=== PATIENT | female | born 1990 ===

== ENCOUNTER 2020-08-14 09:09 | Inpatient (IN) | payer BC, OTHER ==
[2020-08-14 09:42] VITALS: BMI 36.8
[2020-08-14] MEDS ORDERED: Ondansetron PF 4 MG/2 ML Vial IVP PRN (10:07)
[2020-08-14] MEDS ORDERED: Promethazine HCl 25 MG/ML VIAL IM PRN (10:07)
[2020-08-14] MEDS ORDERED: Lidocaine 1% (PF) 30 ML VIAL SC PRN (10:07)
[2020-08-14] MEDS ORDERED: hydrALAZINE 20 MG/ML VIAL SLOW IVP PRN (10:07)
--- NOTE | 2020-08-14 10:10 | PDOC.BPN ---
- Brief Progress Note Encounter Date: 08/14/20 Encounter Time: 10:05 Patient sent from the office by Dr Matson for BP check. Was 140/90s there/ here 150/80-90s. Dr Matson aware and doing direct admit for PIH IOL. Patient not seen by me as directly admitted to [facility] and she has seen her in office 9VX closed). Orders in per [facility]
[2020-08-14] MEDS ORDERED: Butorphanol Tartrate 1 MG/ML VIAL SLOW IVP PRN (10:12)
[2020-08-14] MEDS ORDERED: HYDROcodone/Acetaminophen 5/325 mg Tablet PO PRN ×2 (10:12)
[2020-08-14] MEDS ORDERED: Ibuprofen 800 MG TAB PO PRN (10:12)
[2020-08-14] MEDS ORDERED: Misoprostol 100 MCG TAB VAG SCH ×2 (10:15)
--- NOTE | 2020-08-14 10:18 | PDOC.LDHP ---
Labor and Delivery H&P Chief complaint: other (elevated BP In office) HPI: Pt is a 29yo G1 @ 38.5 weeks w GHTN. Current gestational age (weeks): 38 Due date: 08/23/20 Dating criteria: last menstrual period, first trimester ultrasound Grav: 1 Para: 0 Current complications: gestational hypertension Abnormal US findings: No Current medications: none Previous surgical history: none Allergies/Adverse Reactions: Allergies Allergy/AdvReac Type Severity Reaction Status Date / Time No Known Allergies Allergy Verified 08/14/20 09:43 Social history: none - Physical Exam Abnormal vital signs: MILD range BP General: NAD Heart: RRR Lungs: CTAB Abdomen: gravid Extremeties: no edema FHT: category 1 - Vaginal Exam cm dilated: 0 Effacement: 0% Station: -3 - OB Labs Blood type: O RH: positive Antibody Screen: positive (warm antibodies) HIV: negative RPR: negative HEPSAg: negative 1 hour GCT: negative GBS: negative Urine drug screen: negative Rubella: immune - Assessment L&D Assessment: medically indicated induction (GHTN at term) - Plan Plan: admit to L&D, cervical ripening, labor augmentation if indicated, informed consent obtained, anesthesia consult for pain management -: A/P: GHTN admit @ 38.5 weeks, cervical ripening w cytotec explained and pt agrees to plan of care. Magnesium for seizure prophylaxis if severe features noted.
[2020-08-14] MEDS: Lactated Ringer's 1,000 ML IV SCH (11:08)
[2020-08-14 11:09] LABS: Hemoglobin 13.3 g/dL (12.0-16.0); Mean Corpuscular HGB CONC 34.6 g/dL (32.0-36.0); Mean Corpuscular Hemoglobin 31.6 pg (27.0-31.0); Mean Corpuscular Volume 91.3 fL (78.0-98.0); Mean Platelet Volume 8.7 fL (7.4-10.4); Platelet Count 226 thou/uL (130-400); RBC Distribution Width 13.2 % (11.5-14.5); White Blood Cell (WBC) Count 10.8 thou/uL (4.8-10.8)
[2020-08-14 11:30] LABS: ALT (SGPT) 12 U/L (8-55); AST (SGOT) 16 U/L (5-34); Albumin 3.2 g/dL (3.5-5.0); Alkaline Phosphatase 155 U/L (40-110); Anion Gap 16 mmol/L (10-20); BUN (Urea Nitrogen) 5 mg/dL (7.0-18.7); Bilirubin, Total 0.3 mg/dL (0.2-1.2); Calc. Creatinine Clearance 239 mL/min (70-130); Calcium 8.8 mg/dL (7.8-10.44); Carbon Dioxide 18 mmol/L (22-29); Chloride 107 mmol/L (98-107); Estimated GFR-MDRD Greater than 90; Globulin 2.9 g/dL (2.4-3.5); Glucose 88 mg/dL (70-105); Potassium 3.9 mmol/L (3.5-5.1); Protein, Total 6.1 g/dL (6.0-8.3); Sodium 137 mmol/L (136-145)
[2020-08-14 11:48] LABS: HBSAg Index 0.23 S/CO (0-0.99); Hep B Surf Ag Non-Reactive S/CO (NonReactive); Syphilis Antibody Nonreactive (Nonreactive); Syphilis Antibody Index 0.01 S/CO (<1.00 Non-Reactive)
[2020-08-14] MEDS ORDERED: Bupivacaine/Epinephrine 0.25% 30 ML VIAL ONE (12:07)
--- NOTE | 2020-08-14 12:47 | PDOC.LDPN ---
Labor & Delivery Progress Note - Subjective Subjective: comfortable - Objective Vital signs reviewed and normal: yes (mild rang) FHT: category 1 - Assessment (1) Gestational hypertension Code(s): O13.9 - GESTATIONAL HTN W/O SIGNIFICANT PROTEINURIA, UNSP TRIMESTER Current Visit: Yes Status: Acute (2) 38 weeks gestation of Code(s): Z3A.38 - 38 WEEKS GESTATION OF Current Visit: Yes Status: Acute Plan: continue plan of care -: Doing well, BP mild range. Discussed antihypertensive if BP severe range, as well as magnesium. Cyotec 50mcg x [address]
--- NOTE | 2020-08-14 16:37 | PDOC.LDPN ---
Labor & Delivery Progress Note - Subjective Subjective: comfortable - Objective Vital signs reviewed and normal: yes General: resting Dilation: 1 FHT: category 1 - Assessment (1) Gestational hypertension Code(s): O13.9 - GESTATIONAL HTN W/O SIGNIFICANT PROTEINURIA, UNSP TRIMESTER Current Visit: Yes Status: Acute (2) 38 weeks gestation of Code(s): Z3A.38 - 38 WEEKS GESTATION OF Current Visit: Yes Status: Acute Plan: continue plan of care -: 2nd cytotec in, 3rd cytotec vs Cook Balloon reviewed if needed.
[2020-08-14] MEDS ORDERED: Terbutaline Sulfate 1 MG/ML VIAL ONE (22:04)
--- NOTE | 2020-08-14 22:44 | PDOC.BPN ---
- Brief Progress Note Encounter Date: 08/14/20 Encounter Time: 22:45 Asked by Anand, the patient's RN, to review strip. I see more than 5 CTX in 10 minutes with occ lates but good variability. OK for terb SQ x 1 now to intrauterine resus the child. IVF bolus has been given. Cannot place CX balloon due to current tachysystole.
[2020-08-14] MEDS ORDERED: Terbutaline Sulfate 1 MG/ML VIAL SC SCH (22:45)
--- NOTE | 2020-08-15 00:38 | PDOC.BPN ---
- Brief Progress Note Encounter Date: 08/15/20 Encounter Time: 00:30 strip reviewed with Anand....we will give another vag cytotec 25MCG at 0200 to continue IOL
[2020-08-15] MEDS ORDERED: Misoprostol 100 MCG TAB VAG SCH (02:00)
[2020-08-15] MEDS: Lactated Ringer's 1,000 ML IV SCH ×4 (07:34→18:34)
[2020-08-15] MEDS: NS w/ Oxytocin 10 units 500 ML IV SCH (07:35)
[2020-08-15] MEDS ORDERED: FLU VACC QS2020-21(6MOS UP)/PF 60 MCG/0.5 ML SYRINGE IM ONE (09:00)
--- NOTE | 2020-08-15 09:32 | PDOC.LDPN ---
Labor & Delivery Progress Note - Subjective Subjective: comfortable - Objective Vital signs reviewed and normal: yes (normal to mild range) General: resting Dilation: 3 Effacement: 50% Station: -1 FHT: category 1 [place] contractions every: 3 AROM: clear fluid - Assessment (1) Gestational hypertension Code(s): O13.9 - GESTATIONAL HTN W/O SIGNIFICANT PROTEINURIA, UNSP TRIMESTER Current Visit: Yes Status: Acute (2) 38 weeks gestation of Code(s): Z3A.38 - 38 WEEKS GESTATION OF Current Visit: Yes Status: Acute Plan: continue plan of care
[2020-08-15] MEDS ORDERED: Fentanyl 4 mcg/Bup 0.1% Cadd 100 ML ONE ×2 (11:15→19:09)
[2020-08-15 11:27] LABS: SARS-CoV-2 MS2 Positive; SARS-CoV-2 N Gene Negative; SARS-CoV-2 S Gene Negative; SARS-CoV-2 by NAA Not Detected (NotDetected); SARS-CoV-2 orf1ab Negative
[2020-08-15] MEDS: Dextrose 5%-Lactated Ringers 1,000 ML IV SCH (20:27)
--- NOTE | 2020-08-15 21:14 | PDOC.LDPN ---
Labor & Delivery Progress Note - Subjective Subjective: comfortable, no concerns - Objective Vital signs reviewed and normal: yes General: NAD, resting SVE: anterior lip Effacement: 90% Station: 0 FHT: category 2, variable decelerations, variability present [place] contractions every: 2-3 min Other exam findings: straight OP, then OT after repositioning Plan: continue plan of care -: - continue expectant mgmt - continue repositioning
[2020-08-15] MEDS ORDERED: Calcium Carbonate 500 MG ChewTAB PO SCH (21:45)
[2020-08-15] MEDS ORDERED: Acetaminophen 325 MG TAB PO PRN (21:50)
[2020-08-15] MEDS ORDERED: diphenhydrAMINE 50 MG/ML VIAL IVP PRN (21:50)
[2020-08-15] MEDS ORDERED: Lactated Ringer's 500 ML IV PRN (21:50)
[2020-08-15] MEDS ORDERED: Naloxone HCl 0.4 mg/ml Vial IVP PRN ×2 (21:50)
[2020-08-15] MEDS ORDERED: Ondansetron PF 4 MG/2 ML Vial IVP PRN (21:50)
[2020-08-15] MEDS ORDERED: Promethazine HCl 25 MG/ML VIAL IM PRN (21:50)
[2020-08-15] MEDS ORDERED: EPHEDRINE 25 MG/5 ML SYRINGE SLOW IVP PRN (21:50)
[2020-08-15] MEDS ORDERED: Fentanyl 4 mcg/Bupivacaine 0.1% Cassette 100 ML EPIDURAL SCH (22:00)
[2020-08-15] MEDS ORDERED: Communication Order-Pharmacy FS SCH (22:00)
[2020-08-16] MEDS: NS w/ Oxytocin 10 units 500 ML IV SCH ×3 (00:19→06:05)
[2020-08-16] MEDS: NS / Oxytocin 40 units/1000ml 1,000 ML IV PRN ×2 (03:25→03:28)
[2020-08-16 03:56] LABS: Actual Bicarbonate (HCO3v) 15 mEq/L (22-28); Base Excess -9.9 mEq/L (-2.0 to +3.0); pH (Cord, venous) 7.31 (7.32-7.43)
[2020-08-16 03:59] LABS: Actual Bicarbonate (HCO3a) 14.2 mEq/L (22-28); Base Excess (BEa) -10.1 mEq/L (-2.0 to +3.0)
--- NOTE | 2020-08-16 04:06 | PDOC.OPDEL ---
OB Operative/Delivery Note Delivery Dr/Surgeon: Nubia Assist: Rajinder Pre-Delivery Diagnosis: medically indicated induction Procedure/Post Delivery Dx: spontaneous vaginal delivery Weeks gestation: 39 Anesthesia: epidural - Findings A Sex: female ("Isela") Weight: 7 lb 10.577 oz - 1 min: 8 - 5 min: 9 - Additional Findings/Plan Repaired Obstetrical Laceration: 2nd degree Estimated blood loss: 161ml Post delivery plan: routine recovery
[2020-08-16] MEDS: Lactated Ringer's 1,000 ML IV SCH (06:03)
[2020-08-16] MEDS: Dextrose 5%-Lactated Ringers 1,000 ML IV SCH (06:03)
[2020-08-16] MEDS ORDERED: Ondansetron PF 4 MG/2 ML Vial IVP PRN (06:04)
[2020-08-16] MEDS ORDERED: Milk Of Magnesia 30 ML UDCUP PO PRN (06:04)
[2020-08-16] MEDS ORDERED: Misoprostol 200 MCG TAB VAG PRN (06:04)
[2020-08-16] MEDS ORDERED: NS / Oxytocin 40 units/1000ml 1,000 ML IV SCH (06:04)
[2020-08-16] MEDS ORDERED: Lanolin Ointment 7 GM TUBE TOP PRN (06:04)
[2020-08-16] MEDS ORDERED: Preparation H Ointment 28 GM TUBE PR PRN (06:04)
[2020-08-16] MEDS ORDERED: Benzocaine-Menthol 82.5 ML CAN TOP PRN (06:04)
[2020-08-16] MEDS ORDERED: Bisacodyl 10 MG SUPP PR PRN (06:04)
[2020-08-16] MEDS ORDERED: hydrALAZINE 20 MG/ML VIAL SLOW IVP PRN (06:04)
[2020-08-16] MEDS ORDERED: diphenhydrAMINE 25 MG CAP PO PRN (06:04)
[2020-08-16] MEDS: Ibuprofen 800 MG TAB PO SCH ×3 (06:44→20:52)
[2020-08-16] MEDS: Ferrous Sulfate 325 MG TAB PO SCH ×2 (07:43→13:29)
[2020-08-16] MEDS: Docusate Calcium (SURFAK) 240 MG CAP PO SCH ×2 (08:18→20:52)
[2020-08-16] MEDS: Prenatal Vitamin 1 TAB PO SCH (08:18)
[2020-08-16] MEDS ORDERED: Adacel (T-DAP) 0.5 ML SYRINGE IM ONE (09:00)
[2020-08-16] MEDS ORDERED: Sodium Chloride 0.9% 10 ML ONE (10:02)
[2020-08-17] MEDS: Ibuprofen 800 MG TAB PO SCH ×3 (05:49→21:56)
--- NOTE | 2020-08-17 06:16 | PDOC.PP ---
Post Progress Note Post Day #: 1 Subjective: Doing well PO intake tolerated: yes Flatus: yes Ambulation: yes Vital Signs (12 hours) Temp Pulse Resp BP Pulse Ox 08/17/20 04:00 97.8 F 78 16 128/79 08/17/20 00:00 98.5 F 97 16 152/73 H 08/16/20 20:00 97.8 F 94 16 134/75 96 Weight Weight 215 lb Vitals reviewed - Physical Examination General: NAD Respiratory: non-labored breathing Abdominal: lochia, no distention, appropriately TTP Extremities: negative homans (B) Neurological: no gross focal deficits Psychiatric: A&Ox3, normal affect Result Diagrams: 08/14/20 10:48 08/14/20 10:48 Additional Labs: Post Labs Hep Bs Antigen Non-Reactive S/CO (NonReactive) 08/14/20 10:48 Blood Type O POSITIVE 08/14/20 10:48 (1) Vaginal delivery Code(s): O80 - ENCOUNTER FOR FULL-TERM UNCOMPLICATED DELIVERY Status: Acute - Assessment/Plan PPD1 doing well. Continue PP care until DC tomorrow as
[2020-08-17 06:46] LABS: Hemoglobin 10.2 g/dL (12.0-16.0); Mean Corpuscular HGB CONC 34.7 g/dL (32.0-36.0); Mean Corpuscular Hemoglobin 32.1 pg (27.0-31.0); Mean Corpuscular Volume 92.4 fL (78.0-98.0); Mean Platelet Volume 8.8 fL (7.4-10.4); Platelet Count 171 thou/uL (130-400); RBC Distribution Width 13.2 % (11.5-14.5); Red Blood Cell (RBC) Count 3.19 mill/uL (4.20-5.40); White Blood Cell (WBC) Count 12.6 thou/uL (4.8-10.8)
[2020-08-17] MEDS: Ferrous Sulfate 325 MG TAB PO SCH ×2 (08:30→15:59)
[2020-08-17] MEDS: Prenatal Vitamin 1 TAB PO SCH (09:38)
[2020-08-17] MEDS: Docusate Calcium (SURFAK) 240 MG CAP PO SCH ×2 (09:38→21:56)
[2020-08-18] MEDS: Ibuprofen 800 MG TAB PO SCH ×2 (04:37→14:18)
--- NOTE | 2020-08-18 08:35 | PDOC.PP ---
Post Progress Note Post Day #: 2 Subjective: doing well, only pain is in neck and shoulders from pushing, normal lochia, ready for home PO intake tolerated: yes Flatus: yes Ambulation: yes Weight Weight 215 lb - Physical Examination General: NAD Respiratory: non-labored breathing Abdominal: no distention Fundus firm & at: below umb Psychiatric: A&Ox3, normal affect Result Diagrams: 08/17/20 06:28 08/14/20 10:48 Additional Labs: Post Labs Hep Bs Antigen Non-Reactive S/CO (NonReactive) 08/14/20 10:48 Blood Type O POSITIVE 08/14/20 10:48 (1) Gestational hypertension Code(s): O13.9 - GESTATIONAL HTN W/O SIGNIFICANT PROTEINURIA, UNSP TRIMESTER Status: Acute (2) 38 weeks gestation of Code(s): Z3A.38 - 38 WEEKS GESTATION OF Status: Acute (3) Shoulder pain Code(s): M25.519 - PAIN IN UNSPECIFIED SHOULDER Status: Acute - Assessment/Plan PPD 2 doing well w exception of musculoskeletal pain.
[2020-08-18] MEDS ORDERED: Cyclobenzaprine 10 MG TAB PO SCH (08:45)
[2020-08-18 08:57] VITALS: BP 131/68; TEMP 97.5
[2020-08-18] MEDS: Ferrous Sulfate 325 MG TAB PO SCH (10:21)
[2020-08-18] MEDS: Prenatal Vitamin 1 TAB PO SCH (10:21)
[2020-08-18] MEDS: Docusate Calcium (SURFAK) 240 MG CAP PO SCH (10:21)
== END 2020-08-18 16:05 | disposition home or self-care (01) | DRG 807 ==
LOC: L&D/OP 09:09 → L&D 11:14 → 3SW 08-16 07:39
PROVIDERS: ADMIT Obstetrics & Gynecology; ATTEND Obstetrics & Gynecology
PROC: 10E0XZZ Delivery of Products of Conception, External Approach (ICD-10-PCS; principal; 2020-08-16)
PROC: 0KQM0ZZ Repair Perineum Muscle, Open Approach (ICD-10-PCS; 2020-08-16)
PROC: 10907ZC Drainage of Amniotic Fluid, Therapeutic from Products of Conception, Via Natural or Artificial Opening (ICD-10-PCS; 2020-08-16)
PROC: 3E0P7VZ Introduction of Hormone into Female Reproductive, Via Natural or Artificial Opening (ICD-10-PCS; 2020-08-16)
PROC: 3E033VJ Introduction of Other Hormone into Peripheral Vein, Percutaneous Approach (ICD-10-PCS; 2020-08-16)
DX: O13.4 Gestational [pregnancy-induced] hypertension without significant proteinuria, complicating childbirth (principal); Z37.0 Single live birth; Z20.828 Contact with and (suspected) exposure to other viral communicable diseases; O70.1 Second degree perineal laceration during delivery; O76 Abnormality in fetal heart rate and rhythm complicating labor and delivery; Z3A.38 38 weeks gestation of pregnancy; O90.89 Other complications of the puerperium, not elsewhere classified; M25.519 Pain in unspecified shoulder
CPT/HCPCS: 36415; 51702; 80053; 82805; 85027; 86780; 86850; 86870; 86900; 86901; 87340; 87635; 99285; J2590; J3105; U0003